=== PATIENT | female | born 2000 | race Caucasian/White ===

== ENCOUNTER 2018-08-22 13:42 | Emergency (ER) | payer MEDICAID ==
[~2018-08-22] VITALS: Ht 157.5 cm; Wt 89.3 kg
[~2018-08-22 13:42] MED LIST: IBUP-1221 PO
[2018-08-22 13:46] VITALS: BP 122/77
[2018-08-22 14:12] LABS: BASOPHILS # (AUTO) 0.07 x10^3/uL (0-0.3); BASOPHILS % (AUTO) 0 % (0-1); EOSINOPHILS # (AUTO) 0.38 x10^3/uL (0-0.8); EOSINOPHILS % (AUTO) 2 % (1-7); LYMPHOCYTES # (AUTO) 2.57 x10^3/uL (1-6.1); LYMPHOCYTES % (AUTO) 16 % (22-44); MD NO; MEAN CORPUSCULAR HEMOGLOBIN 28.2 pg (27.0-34.8); MEAN CORPUSCULAR HGB CONC 32.8 g/dL (32.4-35.8); MEAN CORPUSCULAR VOLUME 85.8 fL (80-100); MEAN PLATELET VOLUME 8.5 fL (7.4-10.4); MONOCYTES # (AUTO) 1.01 x10^3/uL (0-1.4); MONOCYTES % (AUTO) 6 % (2-9); NEUTROPHILS # (AUTO) 11.88 x10^3/uL (1.8-8.0); NEUTROPHILS % (AUTO) 75 % (42-75); PLATELET COUNT 326 x10^3/uL (130-400); RED BLOOD COUNT 4.54 x10^6/uL (3.82-5.3); RED CELL DISTRIBUTION WIDTH 13.6 % (9.6-15.2)
[2018-08-22 14:23] LABS: ALANINE AMINOTRANSFERASE 18 U/L (12-78); ALBUMIN 3.7 g/dL (3.4-5.0); ANION GAP 8 mmol/L (5-15); CALCIUM 8.4 mg/dL (8.5-10.1); CHLORIDE 105 mmol/L (98-107); CREATININE 0.93 mg/dL (0.55-1.02)
[2018-08-22 14:25] LABS: ALKALINE PHOSPHATASE 117 U/L (45-117); BILIRUBIN,TOTAL 0.3 mg/dL (0.2-1.0); TOTAL PROTEIN 7.8 g/dL (6.4-8.2)
[2018-08-22 14:52] LABS: HCG UR SG 1.014 (1.003-1.030); MICROSCOPIC AUTO
[2018-08-22 14:54] LABS: CULTURE INDICATED? YES
== END 2018-08-22 15:22 | disposition home or self-care (01) ==
LOC: ED 15:14
DX: N30.00 Acute cystitis without hematuria (principal); R11.2 Nausea with vomiting, unspecified; R10.84 Generalized abdominal pain
CPT/HCPCS: 36415; 80053; 81001; 81025; 83690; 85025; 87077; 87086; 87186; 99284

== ENCOUNTER 2020-04-07 17:28 | Emergency (ER) | payer MEDICAID, OTHER ==
[~2020-04-07] VITALS: Ht 157.5 cm; Wt 98.7 kg
--- NOTE | 2020-04-07 18:15 | NUR ---
Pt arrives to ed with substernal chest pain and epigastric area. Pt reports sudden onset and not feeling well afterwards. Pt reports that radiates to her back on occasion. Pt reports some sob. Pt denies that it is not worse with eating. Pt connected to monitors and call light in reach. Awaiting further orders.
[2020-04-07 18:22] LABS: BASOPHILS # (AUTO) 0.09 x10^3/uL (0-0.1); BASOPHILS % (AUTO) 1 % (0-1); EOSINOPHILS % (AUTO) 4 % (1-7); LYMPHOCYTES # (AUTO) 2.92 x10^3/uL (1-3.4); LYMPHOCYTES % (AUTO) 25 % (22-44); MD NO; MEAN CORPUSCULAR HGB CONC 33.6 g/dL (32.4-35.8); MEAN CORPUSCULAR VOLUME 86.5 fL (80-100); MEAN PLATELET VOLUME 8.9 fL (7.4-10.4); MONOCYTES # (AUTO) 1.01 x10^3/uL (0.2-0.8); MONOCYTES % (AUTO) 9 % (2-9); NEUTROPHILS # (AUTO) 7.32 x10^3/uL (1.8-6.8); NEUTROPHILS % (AUTO) 62 % (42-75); PLATELET COUNT 304 x10^3/uL (130-400); RED BLOOD COUNT 4.78 x10^6/uL (3.82-5.3); RED CELL DISTRIBUTION WIDTH 13.5 % (9.6-15.2)
[2020-04-07 18:26] LABS: ALBUMIN 3.6 g/dL (3.4-5.0); ANION GAP 6 mmol/L (5-15); CALCIUM 9.1 mg/dL (8.5-10.1); CHLORIDE 110 mmol/L (98-107); CREATININE 1.06 mg/dL (0.55-1.02)
[2020-04-07 19:15] VITALS: BP 122/68
--- NOTE | 2020-04-07 20:33 | NUR ---
Patient/Caregiver given discharge instructions and they have confirmed that they understand the instructions. Patient ambulatory with steady gait.
--- NOTE | 2020-04-07 20:40 | NUR ---
Patient/Caregiver given discharge instructions and they have confirmed that they understand the instructions. Patient ambulatory with steady gait.
[2020-04-07] MEDS ORDERED: OMNIPAQUE 350 MG/ML, 100ML BOTTLE ONE (21:40)
== END 2020-04-07 20:42 | disposition home or self-care (01) ==
LOC: ED 20:21
DX: R07.89 Other chest pain (principal); R06.02 Shortness of breath
CPT/HCPCS: 36415; 71046; 71275; 80048; 82040; 85025; 85379; 93005; 99285; Q9967

== ENCOUNTER 2020-04-16 15:07 | Emergency (ER) | payer OTHER ==
[~2020-04-16] VITALS: Ht 157.5 cm; Wt 99.5 kg
[2020-04-16] MEDS ORDERED: NAPR-685 PO (15:57)
[2020-04-16] MEDS ORDERED: CETI10TA26 PO (15:57)
[2020-04-16] MEDS ORDERED: IRON (15:57)
--- NOTE | 2020-04-16 15:58 | NUR ---
PT A&OX4, RESP EVEN & UNLABORED, SPEECH CLEAR, ABLE TO SPEAK IN COMPLETE SENTENCES, SKIN WNL. C/O "SEVERE CHEST PAIN" - STARTS MID-STERNUM RADIATES TO EPIGASTRIC AREA "AND JUST SPREADS OUT". TOOK NAPROXEN AT 1500 TODAY. HAS BEEN TAKING MOTRIN (LAST DOSE A COUPLE OF DAYS AGO) AND FLEXERIL (LAST DOSE YESTERDAY) FOR SIMILAR SX 1-1/2 WKS AGO.
[2020-04-16] MEDS ORDERED: FLEXERIL (16:02)
[2020-04-16] MEDS ORDERED: MOTRIN (16:02)
[2020-04-16] MEDS ORDERED: MAALOX/HYOSCYAMINE/LIDOCAINE 45 ML BTL ONE (16:11)
--- NOTE | 2020-04-16 16:18 | NUR ---
GI COCKTAIL GIVEN
[2020-04-16] MEDS ORDERED: MAALOX/HYOSCYAMINE/LIDOCAINE 45 ML BTL PO ONE (16:30)
--- NOTE | 2020-04-16 16:30 | NUR ---
PT REPORTS MINOR RELIEF POST-GI COCKTAIL. "IT'S ABOUT A 9". PT RESTING QUIETLY ON GURNEY LOOKING AT CELL PHONE.
[2020-04-16 17:43] VITALS: BP 120/70
== END 2020-04-16 18:21 | disposition home or self-care (01) ==
LOC: ED 17:37
DX: R07.89 Other chest pain (principal); K22.4 Dyskinesia of esophagus; R00.0 Tachycardia, unspecified; K21.9 Gastro-esophageal reflux disease without esophagitis; R10.9 Unspecified abdominal pain
CPT/HCPCS: 71045; 76700; 93005; 99284

== ENCOUNTER 2021-03-16 11:53 | Emergency (ER) | payer MEDICAID, OTHER ==
[~2021-03-16] VITALS: Ht 157.5 cm; Wt 96.5 kg
[~2021-03-16 11:53] MED LIST changes: +CETI10TA76 PO; +FLEXERIL; +IRON; +MOTRIN; +NAPR-685 PO
--- NOTE | 2021-03-16 12:40 | NUR ---
PT STATES HAS HAD LOWER LEFT BACK PAIN X10 DAYS. PAIN WENT AWAY FOR A DAY ON DAY 3 BUT CAME BACK THE NEXT DAY. STATES IS A CONSTANT 10/10 PAIN.
--- NOTE | 2021-03-16 13:16 | NUR ---
WEAKNESS IN LEGS STARTED ABOUT A WEEK AGO WITH THE PAIN.
[2021-03-16] MEDS ORDERED: KETOROLAC 30 MG/1 ML IM ONE (13:30)
[2021-03-16] MEDS ORDERED: METHOCARBAMOL 750 MG TABLET PO ONE (13:30)
[2021-03-16 13:47] LABS: MICROSCOPIC NOT IND
[2021-03-16] MEDS ORDERED: METHOCARBAMOL 750 MG TABLET ONE (14:09)
[2021-03-16] MEDS ORDERED: KETOROLAC 30 MG/1 ML ONE (14:10)
--- NOTE | 2021-03-16 14:15 | NUR ---
PROVIDER AT BEDSIDE TO DISCUSS DISCHARGE CARE.
[2021-03-16 15:09] VITALS: BP 133/84
== END 2021-03-16 15:11 | disposition home or self-care (01) ==
LOC: ED 12:22
DX: S39.012A Strain of muscle, fascia and tendon of lower back, initial encounter (principal); X58.XXXA Exposure to other specified factors, initial encounter; Y93.89 Activity, other specified; Y92.89 Other specified places as the place of occurrence of the external cause; Y99.8 Other external cause status
CPT/HCPCS: 72110; 81003; 96372; 99284; J1885